=== PATIENT | female | born 2000 | race Caucasian/White ===

== ENCOUNTER 2022-04-19 01:23 | Emergency (ER) | payer BC ==
[~2022-04-19] VITALS: Ht 167.6 cm; Wt 61.4 kg
[2022-04-19 01:34] VITALS: TEMP 98.5
[2022-04-19] MEDS ORDERED: AMOXICILLIN 8751 TAB PO (01:37)
[2022-04-19 02:08] VITALS: BP 109/68; PULSE 74
== END 2022-04-19 02:55 | disposition home or self-care (01) ==
LOC: COL.ER 01:23
DX: F41.0 Panic disorder [episodic paroxysmal anxiety] (principal)